=== PATIENT | male | born 1985 | race African-American/Black ===

== ENCOUNTER 2019-06-06 00:05 | Inpatient (IN) | payer BC, OTHER ==
[2019-06-06 02:45] LABS: ABSOLUTE EOSINOPHILS # (AUTO) 0.4 10^3/uL (0.0-0.6); ABSOLUTE LYMPHOCYTES (AUTO) 2.1 10^3/uL (0.5-4.7); ABSOLUTE MONOCYTES (AUTO) 0.8 10^3/uL (0.1-1.4); ABSOLUTE NEUT (AUTO) 8.7 10^3/uL (1.7-8.2); BASOPHILS % (AUTO) 0.4 % (0-2); EOSINOPHILS % (AUTO) 3.4 % (0-6); HEMATOCRIT 41.8 % (37.9-51.0); LYMPHOCYTES % (AUTO) 17.6 % (13-45); MEAN CORPUSCULAR HEMOGLOBIN 29.4 pg (27.0-33.4); MEAN CORPUSCULAR HGB CONC 33.4 g/dL (32.0-36.0); MEAN CORPUSCULAR VOLUME 88 fl (80-97); MONOCYTES % (AUTO) 6.8 % (3-13); PLATELET COUNT 222 10^3/uL (150-450); RED BLOOD COUNT 4.75 10^6/uL (4.35-5.55); RED CELL DISTRIBUTION WIDTH 13.9 % (11.5-14.0); SEGMENTED NEUTROPHILS % (AUTO) 71.8 % (42-78); TOTAL CELLS COUNTED % (AUTO) 100 %; WHITE BLOOD COUNT 12.1 10^3/uL (4.0-10.5)
[2019-06-06 03:05] LABS: ALANINE AMINOTRANSFERASE 102 U/L (21-72); ALBUMIN 3.3 g/dL (3.5-5.0); ALKALINE PHOSPHATASE 73 U/L (38-126); ANION GAP 7 (5-19); ASPARTATE AMINO TRANSFERASE 45 U/L (17-59); BILIRUBIN,DIRECT 0.3 mg/dL (0.0-0.4); BILIRUBIN,TOTAL 0.6 mg/dL (0.2-1.3); BLOOD UREA NITROGEN 16 mg/dL (7-20); CALCIUM 8.8 mg/dL (8.4-10.2); CARBON DIOXIDE 27 mmol/L (22-30); CHLORIDE 105 mmol/L (98-107); CREATINE KINASE 189 U/L (55-170); GLUCOSE 105 mg/dL (75-110); POTASSIUM 3.8 mmol/L (3.6-5.0); SODIUM 139.2 mmol/L (137-145); TOTAL PROTEIN 5.3 g/dL (6.3-8.2)
--- NOTE | 2019-06-06 03:10 | RADIOLOGY REPORT (SQ) ---
EXAM DESCRIPTION: X-ray single view chest. CLINICAL HISTORY: 34 years Male, shortness of breath COMPARISON: None. TECHNIQUE: Single portable x-ray view of the chest performed on 06/06/2019 at 2:53 AM FINDINGS: The lungs are well expanded and are clear. There is no evidence of a pneumothorax. The cardiac silhouette is prominent and may be partially accentuated by the portable technique. The mediastinal contours are normal. No acute osseous abnormality is identified. No focal soft tissue abnormalities are seen. Lines and tubes: None. IMPRESSION: No evidence of acute intrathoracic disease. Prominence of the cardiac silhouette which may be partially accentuated by the portable technique.
[2019-06-06 03:16] LABS: TROPONIN I 0.025 ng/mL
--- NOTE | 2019-06-06 04:58 | ER Document Report ---
ED General - General Chief Complaint: Shortness Of Breath Stated Complaint: REPORTS SWELLING OF LEGS AND FEET Time Seen by Provider: 06/06/19 02:25 Mode of Arrival: Ambulatory Information source: Patient Notes: Patient is a 34-year-old male presented to the emergency department chief complaint of lower extremity pain and swelling bilaterally. He also reports associated intermittent nausea and abdominal swelling. He does endorse some shortness of breath but denies any specific chest pain. He denies any vomiting fever, headaches or recent illness. Patient reports he has not seen a physician in many years. He denies having any chronic medical illnesses and does not take any medications daily. TRAVEL OUTSIDE OF THE [place] IN LAST 30 DAYS: No Past Medical History - General Information source: Law Enforcement - Social History Smoking Status: Never Smoker Chew tobacco use (# tins/day): No Frequency of alcohol use: Occasional Drug Abuse: Cocaine, Marijuana Family History: CAD, COPD, DM, Hyperlipidemia, Hypertension Patient has suicidal ideation: No Patient has homicidal ideation: No - Medical History Medical History: Negative Renal/ Medical History: Denies: Hx Peritoneal Dialysis Surgical Hx: Negative - Immunizations Immunizations up to date: No Review of Systems - Review of Systems Constitutional: No symptoms reported EENT: No symptoms reported Cardiovascular: See HPI Respiratory: See HPI Gastrointestinal: See HPI - She is Genitourinary: See HPI Male Genitourinary: See HPI Musculoskeletal: See HPI Skin: See HPI Hematologic/Lymphatic: See HPI Neurological/Psychological: See HPI Physical Exam - Vital signs Vitals: Temp Pulse Resp BP Pulse Ox 97.4 F 102 H 23 H 187/109 H 95 06/06/19 00:27 06/06/19 00:27 06/06/19 00:27 06/06/19 00:27 06/06/19 00:27 - Notes Notes: PHYSICAL EXAMINATION: GENERAL: Morbidly obese -[place] male. HEAD: Atraumatic, normocephalic. EYES: Pupils equal round and reactive to light, extraocular movements intact, sclera anicteric, conjunctiva are normal. ENT: Nares patent, oropharynx clear without exudates. Moist mucous membranes. NECK: Normal range of motion, supple without lymphadenopathy LUNGS: Breath sounds clear to auscultation bilaterally and equal. No wheezes rales or rhonchi. HEART: Tachycardic ABDOMEN: Soft, nontender, nondistended abdomen. No guarding, no rebound. No masses appreciated. Musculoskeletal: Normal range of motion, 3+ pitting edema to bilateral lower extremities. No cyanosis. NEUROLOGICAL: Cranial nerves grossly intact. Normal speech, normal gait. Normal sensory, motor exams PSYCH: Normal mood, normal affect. SKIN: Warm, Dry, normal turgor, no rashes or lesions noted. Course - Re-evaluation Re-evalutation: Laboratory 06/06/19 06/06/19 06/06/19 02:26 02:26 02:26 WBC 12.1 H RBC 4.75 Hgb 14.0 Hct 41.8 MCV 88 MCH 29.4 MCHC 33.4 RDW 13.9 Plt Count 222 Seg Neutrophils % 71.8 Lymphocytes % 17.6 Monocytes % 6.8 Eosinophils % 3.4 Basophils % 0.4 Absolute Neutrophils 8.7 H Absolute Lymphocytes 2.1 Absolute Monocytes 0.8 Absolute Eosinophils 0.4 Absolute Basophils 0.0 Sodium 139.2 Potassium 3.8 Chloride 105 Carbon Dioxide 27 Anion Gap 7 BUN 16 Creatinine 1.16 Est GFR ( Amer) > 60 Est GFR (Non-Af Amer) > 60 Glucose 105 Calcium 8.8 Total Bilirubin 0.6 Direct Bilirubin 0.3 Neonat Total Bilirubin Not Reportable Neonat Direct Bilirubin Not Reportable Neonat Indirect Bili Not Reportable AST 45 ALT 102 H Alkaline Phosphatase 73 Creatine Kinase 189 H CK-MB (CK-2) Troponin I 0.025 NT-Pro-B Natriuret Pep 705 H Total Protein 5.3 L Albumin 3.3 L 06/06/19 02:26 WBC RBC Hgb Hct MCV MCH MCHC RDW Plt Count Seg Neutrophils % Lymphocytes % Monocytes % Eosinophils % Basophils % Absolute Neutrophils Absolute Lymphocytes Absolute Monocytes Absolute Eosinophils Absolute Basophils Sodium Potassium Chloride Carbon Dioxide Anion Gap BUN Creatinine Est GFR ( Amer) Est GFR (Non-Af Amer) Glucose Calcium Total Bilirubin Direct Bilirubin Neonat Total Bilirubin Neonat Direct Bilirubin Neonat Indirect Bili AST ALT Alkaline Phosphatase Creatine Kinase CK-MB (CK-2) 0.89 Troponin I NT-Pro-B Natriuret Pep Total Protein Albumin Chest X-Ray 06/06/19 02:37 IMPRESSION: No evidence of acute intrathoracic disease. Prominence of the cardiac silhouette which may be partially accentuated by the portable technique. Spoke with dictating machine typist on-call, Dr. June who agrees to consult on this patient and feels the patient is appropriate for admission to [facility]. I will next consult the hospitalist regarding patient admission. Patient and patient's family member are updated on all test results and plan of care and are agreeable to same. 06/06/19 05:55 Patient accepted for admission by hospitalist, Dr. Lovell. - Vital Signs Vital signs: Temp Pulse Resp BP Pulse Ox 98.4 F 102 H 25 H 185/119 H 97 06/06/19 05:00 06/06/19 00:27 06/06/19 05:01 06/06/19 05:01 06/06/19 05:01 - Laboratory Result Diagrams: 06/06/19 02:26 06/06/19 02:26 Laboratory results interpreted by me: 06/06/19 06/06/19 06/06/19 02:26 02:26 02:26 WBC 12.1 H Absolute Neutrophils 8.7 H ALT 102 H Creatine Kinase 189 H NT-Pro-B Natriuret Pep 705 H Total Protein 5.3 L Albumin 3.3 L Discharge - Discharge Clinical Impression: Hypertensive urgency, 3+ pitting edema, Elevated troponin CHF (congestive heart failure) Qualifiers: Heart failure type: unspecified Heart failure chronicity: unspecified Qualified Code(s): I50.9 - Heart failure, unspecified Condition: Stable Disposition: ADMITTED INPATIENT Admitting Provider: Nas (Hospitalist) Unit Admitted: Telemetry
[2019-06-06] MEDS ORDERED: MORPHINE SULFATE 10 MG/ML INJ IV ONE (05:50)
[2019-06-06] MEDS ORDERED: FUROSEMIDE INJ/PF 40 MG/4 ML SDV IV ONE (05:50)
[2019-06-06] MEDS ORDERED: MAGNESIUM HYDROXIDE SUSP 30 ML UDCUP PO PRN (08:01)
[2019-06-06] MEDS ORDERED: PROMETHAZINE HCL INJ 25 MG/1 ML VIAL IV PRN (08:01)
[2019-06-06] MEDS ORDERED: MAG HYDROX/AL HYDROX/SIMETH SUSP 30 ML UDCUP PO PRN (08:01)
[2019-06-06] MEDS ORDERED: ACETAMINOPHEN 325 MG TABLET PO PRN (08:01)
[2019-06-06] MEDS: DOCUSATE SODIUM 100 MG CAPSULE PO SCH (09:46)
[2019-06-06] MEDS: FAMOTIDINE 20 MG TABLET PO SCH ×2 (09:46→21:11)
[2019-06-06] MEDS: ASPIRIN 81 MG TABLET, ENT COATED PO SCH (09:47)
[2019-06-06] MEDS: FUROSEMIDE INJ/PF 20 MG/2 ML SDV IV SCH ×2 (09:51→21:10)
[2019-06-06] MEDS ORDERED: LISINOPRIL 10 MG TABLET PO SCH (10:00)
[2019-06-06] MEDS ORDERED: CARVEDILOL 6.25 MG TABLET PO SCH (10:00)
[2019-06-06] MEDS: HEPARIN SOD (PORCINE) 5,000 UNIT/ML 1 ML VIAL SUBCUT SCH ×2 (13:52→21:10)
[2019-06-06] MEDS: HYDRALAZINE HCL INJ/PF 20 MG/1 ML SDV IV PRN ×2 (14:21→21:11)
--- NOTE | 2019-06-06 14:27 | PDOC H&P ---
History of Present Illness Admission Date/PCP: 06/06/19 06:11 Patient complains of: shortness of breath History of Present Illness: WILI SILVESTRE is a 34 year old male with a past medical history significant for morbid obesity, tobacco dependence, substance abuse, who presents to the emergency department today with a complaint of several weeks of progressively worsening dyspnea on exertion, orthopnea, and peripheral edema. Patient reports that he does not have a primary care provider and has not utilized [facility] in several years. Evaluation in the emergency department demonstrates blood pressures 153/103, RR 26, mild leukocytosis (WBC 12.1), proBNP of 705, indeterminately elevated troponin of 0.025, and benign chest x-ray. He is provided IV furosemide and referred to the hospitalist service for admission and management of the above-stated complaints and findings. Past Medical History Cardiac Medical History: Reports: None Pulmonary Medical History: Reports: None EENT Medical History: Reports: None Neurological Medical History: Reports: None Endocrine Medical History: Reports: Obesity Renal/ Medical History: Reports: None Malignancy Medical History: Reports: None GI Medical History: Reports: None Musculoskeltal Medical History: Reports: None Skin Medical History: Reports: None Psychiatric Medical History: Reports: Substance Abuse, Tobacco Dependency Traumatic Medical History: Reports: None Hematology: Reports: None Infectious Medical History: Reports: None Past Surgical History Past Surgical History: Reports: None Social History Information Source: Patient Lives with: Family Smoking Status: Current Every Day Smoker Cigarettes Packs Per Day: 0.2 Frequency of Alcohol Use: Occasional Hx Recreational Drug Use: Yes Drugs: Cocaine, Marijuana Hx Prescription Drug Abuse: No - Advance Directive Resuscitation Status: Full Code Family History Family History: CAD, COPD, DM, Hyperlipidemia, Hypertension, Malignancy Parental Family History Reviewed: Yes Children Family History Reviewed: No Sibling(s) Family History Reviewed.: No Medication/Allergy Home Medications: No Home Medications 06/06/19 Allergies/Adverse Reactions: No Known Allergies Allergy (Unverified 06/06/19 06:16) Review of Systems Constitutional: PRESENT: fatigue. ABSENT: chills, fever(s), headache(s), weight gain, weight loss Eyes: ABSENT: visual disturbances Ears: ABSENT: hearing changes Cardiovascular: PRESENT: dyspnea on exertion, edema, orthropnea. ABSENT: chest pain, palpitations Respiratory: ABSENT: cough, hemoptysis Gastrointestinal: ABSENT: abdominal pain, constipation, diarrhea, hematemesis, hematochezia, nausea, vomiting Genitourinary: ABSENT: dysuria, hematuria Musculoskeletal: ABSENT: joint swelling Integumentary: ABSENT: rash, wounds Neurological: ABSENT: abnormal gait, abnormal speech, confusion, dizziness, foc al weakness, syncope Psychiatric: ABSENT: anxiety, depression, homidical ideation, suicidal ideation Endocrine: ABSENT: cold intolerance, heat intolerance, polydipsia, polyuria Hematologic/Lymphatic: ABSENT: easy bleeding, easy bruising Physical Exam Vital Signs: Temp Pulse Resp BP Pulse Ox 97.6 F 94 22 H 163/115 H 96 06/06/19 12:16 06/06/19 14:00 06/06/19 12:16 06/06/19 12:16 06/06/19 12:16 Intake & Output 06/05/19 06/06/19 06/07/19 06:59 06:59 06:59 Weight 190.1 kg General appearance: PRESENT: no acute distress, cooperative, morbidly obese - Super, well-developed, well-nourished Head exam: PRESENT: atraumatic, normocephalic Eye exam: PRESENT: conjunctiva pink, EOMI, PERRLA. ABSENT: scleral icterus Ear exam: PRESENT: normal external ear exam Mouth exam: PRESENT: moist, tongue midline Neck exam: ABSENT: carotid bruit, JVD, lymphadenopathy, thyromegaly Respiratory exam: PRESENT: crackles - Bibasilar, symmetrical, unlabored. ABSENT: rales, rhonchi, wheezes Cardiovascular exam: PRESENT: RRR, +S1, +S2. ABSENT: diastolic murmur, rubs, systolic murmur Pulses: PRESENT: normal dorsalis pedis pul Vascular exam: PRESENT: normal capillary refill GI/Abdominal exam: PRESENT: normal bowel sounds, soft. ABSENT: distended, guarding, mass, organolmegaly, rebound, tenderness Rectal exam: PRESENT: deferred Extremities exam: PRESENT: full ROM, +2 edema - Pitting BLE. ABSENT: calf tenderness, clubbing, pedal edema Neurological exam: PRESENT: alert, awake, oriented to person, oriented to place, oriented to time, oriented to situation, CN II-XII grossly intact. ABSENT: motor sensory deficit Psychiatric exam: PRESENT: appropriate affect, normal mood. ABSENT: homicidal ideation, suicidal ideation Skin exam: PRESENT: dry, intact, warm. ABSENT: cyanosis, rash Results Laboratory Results: 06/06/19 02:26 06/06/19 02:26 06/06/19 06/06/19 02:26 02:26 WBC 12.1 H RBC 4.75 Hgb 14.0 Hct 41.8 MCV 88 MCH 29.4 MCHC 33.4 RDW 13.9 Plt Count 222 Seg Neutrophils % 71.8 Lymphocytes % 17.6 Monocytes % 6.8 Eosinophils % 3.4 Basophils % 0.4 Absolute Neutrophils 8.7 H Absolute Lymphocytes 2.1 Absolute Monocytes 0.8 Absolute Eosinophils 0.4 Absolute Basophils 0.0 Sodium 139.2 Potassium 3.8 Chloride 105 Carbon Dioxide 27 Anion Gap 7 BUN 16 Creatinine 1.16 Est GFR ( Amer) > 60 Est GFR (Non-Af Amer) > 60 Glucose 105 Calcium 8.8 Total Bilirubin 0.6 AST 45 ALT 102 H Alkaline Phosphatase 73 Total Protein 5.3 L Albumin 3.3 L 06/06/19 06/06/19 06/06/19 02:26 02:26 02:26 Creatine Kinase 189 H CK-MB (CK-2) 0.89 Troponin I 0.025 NT-Pro-B Natriuret Pep 705 H 06/06/19 09:30 Creatine Kinase CK-MB (CK-2) Troponin I 0.027 NT-Pro-B Natriuret Pep Impressions: Chest X-Ray 06/06/19 02:37 IMPRESSION: No evidence of acute intrathoracic disease. Prominence of the cardiac silhouette which may be partially accentuated by the portable technique. Assessment and Plan - Diagnosis (1) CHF (congestive heart failure) Qualifiers: Heart failure type: unspecified Heart failure chronicity: unspecified Qualified Code(s): I50.9 - Heart failure, unspecified Is this a current diagnosis for this admission?: Yes Plan: No previous history of CHF. Borderline cardiomegaly by chest x-ray, although radiologist comments that this may be due to positioning and technique. proBNP is only elevated to 705; again must take into consideration the patient super morbid obesity. He does have +3 pitting edema bilaterally with profound orthopnea. The patient is admitted to the medical floor and continuous cardiac telemetry. We will obtain echocardiogram. As the patient admits to somewhat regular cocaine use; will avoid beta-blockers. He is started on lisinopril, Norvasc, and spironolactone. He is placed on daily aspirin and statin therapy. We will provide IV furosemide twice daily for diuresis. Cardiac diet. Daily weights and strict I&O's. Consider cardiac consultation once echocardiogram results are available. We will risk stratify with A1c, lipid panel, and thyroid panel with a.m. lab work. Patient educator and registered dietitian are consulted. (2) Hypertensive urgency Is this a current diagnosis for this admission?: Yes Plan: Cardiac diet. Patient is started on lisinopril, Norvasc, and spironolactone. We will avoid beta-violetta secondary to admitted cocaine use. Furosemide as above. Patient educator and registered dietitian are consulted. (3) Morbid obesity with BMI of 50.0-59.9, adult Is this a current diagnosis for this admission?: Yes Plan: Dietary discretion and lifestyle modifications are recommended. TSH, A1c, lipid panel with a.m. lab work. Registered dietitian and patient educator consulted. (4) Tobacco abuse Is this a current diagnosis for this admission?: Yes Plan: Smoking cessation strongly encouraged. Nicotine replacement therapies provided. (5) Cocaine abuse Is this a current diagnosis for this admission?: Yes Plan: Patient admits to "occasional but regular" cocaine use. Strongly encouraged patient to discontinue use. We will avoid beta-violetta. Symptomatic management and supportive care. - Time Time Spent with patient: 35 or more minutes Smoking Cessation Education: 3 to 10 minutes Medications reviewed and adjusted accordingly: Yes Anticipated discharge: Home Within: within 48 hours
[2019-06-06] MEDS: SODIUM CHLORIDE NASAL SPRAY 44 ML NASL SCH ×2 (18:35→21:19)
[2019-06-06] MEDS: ATORVASTATIN CALCIUM 20 MG TABLET PO SCH (21:11)
[2019-06-06] MEDS: AMLODIPINE BESYLATE 5 MG TABLET PO SCH (21:11)
[2019-06-07] MEDS: HYDRALAZINE HCL INJ/PF 20 MG/1 ML SDV IV PRN (05:33)
[2019-06-07] MEDS: HEPARIN SOD (PORCINE) 5,000 UNIT/ML 1 ML VIAL SUBCUT SCH ×3 (05:34→22:00)
[2019-06-07 06:06] LABS: HEMATOCRIT 43.9 % (37.9-51.0); HEMOGLOBIN 14.5 g/dL (13.5-17.0); MEAN CORPUSCULAR HGB CONC 32.9 g/dL (32.0-36.0); MEAN CORPUSCULAR VOLUME 88 fl (80-97); PLATELET COUNT 220 10^3/uL (150-450); RED BLOOD COUNT 4.99 10^6/uL (4.35-5.55); WHITE BLOOD COUNT 12.2 10^3/uL (4.0-10.5)
[2019-06-07 06:30] LABS: ALANINE AMINOTRANSFERASE 78 U/L (21-72); ALBUMIN 3.5 g/dL (3.5-5.0); ALKALINE PHOSPHATASE 61 U/L (38-126); ANION GAP 8 (5-19); ASPARTATE AMINO TRANSFERASE 36 U/L (17-59); BILIRUBIN,DIRECT 0.3 mg/dL (0.0-0.4); BILIRUBIN,TOTAL 1.1 mg/dL (0.2-1.3); BLOOD UREA NITROGEN 12 mg/dL (7-20); CALCIUM 8.7 mg/dL (8.4-10.2); CARBON DIOXIDE 28 mmol/L (22-30); CHLORIDE 104 mmol/L (98-107); CHOLESTEROL 155.13 mg/dL (0-200); GLUCOSE 97 mg/dL (75-110); POTASSIUM 3.9 mmol/L (3.6-5.0); SODIUM 140.4 mmol/L (137-145); TOTAL PROTEIN 5.8 g/dL (6.3-8.2); TRIGLYCERIDES 117 mg/dL (<150)
[2019-06-07 06:41] LABS: DIRECT LDL 112 mg/dL (<100)
[2019-06-07 07:23] LABS: FREE T4 (FREE THYROXINE) 1.12 ng/dL (0.78-2.19)
[2019-06-07 07:37] LABS: THYROID STIMULATING HORMONE 1.06 uIU/mL (0.47-4.68)
[2019-06-07] MEDS: SODIUM CHLORIDE NASAL SPRAY 44 ML NASL SCH ×4 (07:47→22:00)
[2019-06-07] MEDS: FUROSEMIDE INJ/PF 20 MG/2 ML SDV IV SCH ×2 (09:31→22:00)
[2019-06-07] MEDS: NICOTINE 7 MG/24 HR PATCH.TD24 TD SCH (09:31)
[2019-06-07] MEDS: DOCUSATE SODIUM 100 MG CAPSULE PO SCH (09:33)
[2019-06-07] MEDS: ASPIRIN 81 MG TABLET, ENT COATED PO SCH (09:33)
[2019-06-07] MEDS: AMLODIPINE BESYLATE 5 MG TABLET PO SCH ×2 (09:34→21:59)
[2019-06-07] MEDS: SPIRONOLACTONE 25 MG TABLET PO SCH (09:34)
[2019-06-07] MEDS: FAMOTIDINE 20 MG TABLET PO SCH ×2 (09:34→21:59)
[2019-06-07] MEDS ORDERED: LISINOPRIL 10 MG TABLET PO SCH (10:00)
--- NOTE | 2019-06-07 13:57 | XCELERA REPORT ---
[address] [address] Transthoracic Echocardiogram Report Name: WILI SILVESTRE Age: 34 yrs Gender: Male : 1985 Patient Status: Inpatient Patient Location: [address] [place], [place] [id number] Study Date: 06/06/2019 10:54 AM Height: 74 in Weight: 419 lb BSA: 3.0 m2 Procedure: A two-dimensional transthoracic echocardiogram with color flow and Doppler was performed. Study Quality: Fair. Reason For Study: CHF History: CHF. Ordering Physician: LUCIEN LOCKE Performed By: Jud Escalante Interpretation Summary The left ventricle is moderately dilated. There is mild concentric left ventricular hypertrophy. LV EF is 30% to 35% Left ventricular systolic function is moderate to severely reduced. There is moderate to severe global hypokinesis of the left ventricle. There is no thrombus. No ASD , VSD or PFO seen. The right atrium is mild to moderately dilated. The left atrium is moderately dilated. There is no evidence of mitral valve prolapse. There is no vegetation seen on the mitral valve. There is no mitral valve stenosis. There is a mild amount of mitral regurgitation There is no aortic valvular vegetation. There is no aortic valve stenosis There is no LVOT obstruction. No aortic regurgitation is present. There is no tricuspid stenosis. There is a mild amount of tricuspid regurgitation There is mild pulmonary hypertension by echo RVSP s 40 to 45 mm of g , with RA mean of 10 to 15. There is no pulmonic valvular stenosis. There is a mild to moderate amount of pulmonic regurgitation The aortic root is normal size. The inferior vena cava appeared normal and decreased < 50% with respiration (RAP 10-15 mmHg) There is no pericardial effusion. MMode/2D Measurements & Calculations RVDd: 4.4 cm LVIDd: 5.4 cm FS: 17.5 % EPSS: 1.5 cm IVSd: 1.3 cm LVIDs: 4.5 cm EDV(Teich): 142.5 ml LVPWd: 1.2 cm ESV(Teich): 91.1 ml EF(Teich): 36.1 % Ao root diam: 2.9 cm LVLd ap4: 10.1 cm SV(MOD-sp4): 69.0 ml EDV(MOD-sp4): 184.0 ml Ao root area: 6.4 cm2 LVLs ap4: 9.1 cm LA dimension: 4.9 cm ESV(MOD-sp4): 115.0 ml EF(MOD-sp4): 37.5 % Doppler Measurements & Calculations MV E max varsha: MV P1/2t max varsha: Ao V2 max: LV V1 max P.5 cm/sec 113.0 cm/sec 99.4 cm/sec 3.2 mmHg MV A max varsha: MV P1/2t: 37.1 msec Ao max PG: LV V1 max: 42.0 cm/sec MVA(P1/2t): 5.9 cm2 4.0 mmHg 89.3 cm/sec MV E/A: 2.7 MV dec slope: 891.7 cm/sec2 MV dec time: 0.12 sec PA V2 max: PI end-d varsha: TR max varsha: MV P1/2t-pr_phl: 82.4 cm/sec 229.4 cm/sec 275.1 cm/sec 37.1 msec PA max P.7 mmHg TR max P.3 mmHg Left Ventricle The left ventricle is moderately dilated. There is mild concentric left ventricular hypertrophy. LV EF is 30% to 35%. Left ventricular systolic function is moderate to severely reduced. There is moderate to severe global hypokinesis of the left ventricle. There is no thrombus. No ASD , VSD or PFO seen. Right Ventricle The right ventricle is moderately dilated. The right ventricle is not well visualized secondary to technical limitations. The right ventricular systolic function is mildly reduced. Atria The right atrium is mild to moderately dilated. The left atrium is moderately dilated. Mitral Valve There is no evidence of mitral valve prolapse. There is no vegetation seen on the mitral valve. There is no mitral valve stenosis. There is a mild amount of mitral regurgitation. Aortic Valve There is no aortic valvular vegetation. There is no aortic valve stenosis. There is no LVOT obstruction. No aortic regurgitation is present. Tricuspid Valve There is no tricuspid stenosis. There is a mild amount of tricuspid regurgitation. There is mild pulmonary hypertension by echo. RVSP s 40 to 45 mm of g , with RA mean of 10 to 15. Pulmonic Valve There is no pulmonic valvular stenosis. There is a mild to moderate amount of pulmonic regurgitation. Great Vessels The aortic root is normal size. The inferior vena cava appeared normal and decreased < 50% with respiration (RAP 10-15 mmHg). Effusions There is no pericardial effusion. : LUCIEN LOCKE, Priscila
[2019-06-07] MEDS ORDERED: LISINOPRIL 10 MG TABLET PO ONE (17:49)
--- NOTE | 2019-06-07 17:51 | Progress Note Acknowledgement ---
Progress Note Acknowledgement Progess Note Acknowledgement: I, the undersigned member of the medical staff with appropriate privileges and with supervisory authority over Chacha Bloom, a [facility] practice allied health professional, acknowledge that I have reviewed the progress notes entered on this patient, and in my professional judgment believe that the assessment made and/or any care evidenced was appropriate
--- NOTE | 2019-06-07 18:06 | PDOC PROGRESS REPORT ---
Subjective Progress Note for:: 06/07/19 Subjective:: WILI SILVESTRE is a 34 year old male with a past medical history significant for morbid obesity, tobacco dependence, substance abuse (occ. cocaine use) who was admitted 06/07/2019 for new diagnosis of CHF with exacerbation. Patient was seen on morning rounds. He was found resting in bed comfortably on room air. Upon entering the room, he was found lying flat on his stomach. Patient tells me that this is the first he has been able to lie flat for several months. He is comfortable lying prone but does become short of breath when lying supine. He also reports that he utilize CPAP machine overnight for approximately 3 hours and that this was the first time he was able to get uninterrupted sleep in several months. He does continue to have bilateral lower extremity pitting edema, though he notes this is also somewhat improved today. He denies fever, chills, chest pain, palpitations, cough, abdominal pain, nausea vomiting and diarrhea. He has no new questions or concerns. No concerns per nursing. Reason For Visit: ACUTE CHF Physical Exam Vital Signs: Temp Pulse Resp BP Pulse Ox 97.7 F 96 20 154/114 H 95 06/07/19 16:00 06/07/19 16:00 06/07/19 16:00 06/07/19 16:00 06/07/19 16:00 Intake & Output 06/06/19 06/07/19 06/08/19 06:59 06:59 06:59 Intake Total 2100 1114 Output Total 4325 2050 Balance -2225 -936 Weight 190.1 kg 186.2 kg General appearance: PRESENT: no acute distress, cooperative, morbidly obese - Super, well-developed, well-nourished Head exam: PRESENT: atraumatic, normocephalic Eye exam: PRESENT: conjunctiva pink, EOMI, PERRLA. ABSENT: scleral icterus Mouth exam: PRESENT: moist, tongue midline Neck exam: ABSENT: carotid bruit, JVD, lymphadenopathy, thyromegaly Respiratory exam: PRESENT: crackles - Bibasilar, symmetrical, unlabored. ABSENT: rales, rhonchi, wheezes Cardiovascular exam: PRESENT: RRR, +S1, +S2. ABSENT: diastolic murmur, rubs, systolic murmur Pulses: PRESENT: normal dorsalis pedis pul Vascular exam: PRESENT: normal capillary refill GI/Abdominal exam: PRESENT: normal bowel sounds, soft. ABSENT: distended, guarding, mass, organolmegaly, rebound, tenderness Rectal exam: PRESENT: deferred Extremities exam: PRESENT: full ROM, +2 edema - Pitting BLE. ABSENT: calf tenderness, clubbing, pedal edema Neurological exam: PRESENT: alert, awake, oriented to person, oriented to place, oriented to time, oriented to situation, CN II-XII grossly intact. ABSENT: motor sensory deficit Psychiatric exam: PRESENT: appropriate affect, normal mood. ABSENT: homicidal ideation, suicidal ideation Skin exam: PRESENT: dry, intact, warm. ABSENT: cyanosis, rash Results Laboratory Results: 06/07/19 05:09 06/07/19 05:09 06/07/19 06/07/19 06/07/19 05:09 05:09 05:09 WBC 12.2 H RBC 4.99 Hgb 14.5 Hct 43.9 MCV 88 MCH 29.0 MCHC 32.9 RDW 14.0 Plt Count 220 Sodium 140.4 Potassium 3.9 Chloride 104 Carbon Dioxide 28 Anion Gap 8 BUN 12 Creatinine 1.07 Est GFR ( Amer) > 60 Est GFR (Non-Af Amer) > 60 Glucose 97 Calcium 8.7 Total Bilirubin 1.1 AST 36 ALT 78 H Alkaline Phosphatase 61 Total Protein 5.8 L Albumin 3.5 Triglycerides 117 Cholesterol 155.13 LDL Cholesterol Direct 112 H VLDL Cholesterol 23.0 HDL Cholesterol 31 L TSH 1.06 Free T4 1.12 06/06/19 06/06/19 06/06/19 02:26 02:26 02:26 Creatine Kinase 189 H CK-MB (CK-2) 0.89 Troponin I 0.025 NT-Pro-B Natriuret Pep 705 H 06/06/19 06/06/19 09:30 14:41 Creatine Kinase CK-MB (CK-2) Troponin I 0.027 0.029 NT-Pro-B Natriuret Pep Impressions: Chest X-Ray 06/06/19 02:37 IMPRESSION: No evidence of acute intrathoracic disease. Prominence of the cardiac silhouette which may be partially accentuated by the portable technique. Assessment and Plan - Diagnosis (1) CHF (congestive heart failure) Qualifiers: Heart failure type: unspecified Heart failure chronicity: unspecified Qualified Code(s): I50.9 - Heart failure, unspecified Is this a current diagnosis for this admission?: Yes Plan: No previous history of CHF. Borderline cardiomegaly by chest x-ray, although radiologist comments that this may be due to positioning and technique. proBNP is only elevated to 705; again must take into consideration the patient super morbid obesity. Troponins are negative x3 He does have +3 pitting edema bilaterally with orthopnea. Echocardiogram reveals LVEF 30-35%, severe global hypokinesis of the left ventricle, right atrium moderately dilatated, left atrium moderately dilatated, and mild pulmonary hypertension. A1c, lipid panel, and TSH panel are acceptable. The patient is admitted to the medical floor and continuous cardiac telemetry. As the patient admits to somewhat regular cocaine use; will avoid beta-blockers. He is started on lisinopril, Norvasc, and spironolactone. He is placed on daily aspirin and statin therapy. We will provide IV furosemide twice daily for diuresis. Cardiac diet. Daily weights and strict I&O's. We will consult the [employer] optometry assistant for evaluation of appropriateness of cardiac cath. Patient educator and registered dietitian are consulted. (2) Hypertensive urgency Is this a current diagnosis for this admission?: Yes Plan: Cardiac diet. Patient is started on lisinopril, Norvasc, and spironolactone. Have increased lisinopril dose. Consider renal u/s and/or hydralazine if remains elevated tomorrow. We will avoid beta-violetta secondary to admitted cocaine use. Furosemide as above. Patient educator and registered dietitian are consulted. (3) Morbid obesity with BMI of 50.0-59.9, adult Is this a current diagnosis for this admission?: Yes Plan: A1c, lipid panel, TSH panel acceptable. Dietary discretion and lifestyle modifications are recommended. Registered dietitian and patient educator consulted. (4) Tobacco abuse Is this a current diagnosis for this admission?: Yes Plan: Smoking cessation strongly encouraged. Nicotine replacement therapies provided. (5) Cocaine abuse Is this a current diagnosis for this admission?: Yes Plan: Patient admits to "occasional but regular" cocaine use. Strongly encouraged patient to discontinue use. We will avoid beta-violetta. Symptomatic management and supportive care. - Time Time Spent with patient: 25-34 minutes Medications reviewed and adjusted accordingly: Yes Anticipated discharge: Home Within: within 48 hours - Inpatient Certification Based on my medical assessment, after consideration of the patient's comorbidities, presenting symptoms, or acuity I expect that the services needed warrant INPATIENT care.: Yes I certify that my determination is in accordance with my understanding of Medicare's requirements for reasonable and necessary INPATIENT services [42 CFR 412.3e].: Yes Medical Necessity: Need For Continuous Telemetry Monitoring, Risk of Complication if Not Cared For in Hospital, Risk of Diagnosis Which Will Require Inpatient Eval/Care/Monitoring
--- NOTE | 2019-06-07 18:25 | EKG REPORT ---
SEVERITY:- ABNORMAL ECG - SINUS TACHYCARDIA PROBABLE LEFT ATRIAL ABNORMALITY NONSPECIFIC T ABNORMALITIES, LATERAL LEADS PROLONGED QT INTERVAL : Confirmed by: Boogie Murphy MD 07-Jun-2019 18:25:02
[2019-06-07] MEDS: ATORVASTATIN CALCIUM 20 MG TABLET PO SCH (21:59)
[2019-06-08] MEDS: HYDRALAZINE HCL INJ/PF 20 MG/1 ML SDV IV PRN ×2 (00:20→11:34)
[2019-06-08] MEDS: HEPARIN SOD (PORCINE) 5,000 UNIT/ML 1 ML VIAL SUBCUT SCH ×3 (05:19→21:48)
[2019-06-08 06:13] LABS: HEMATOCRIT 43.9 % (37.9-51.0); HEMOGLOBIN 14.3 g/dL (13.5-17.0); MEAN CORPUSCULAR HEMOGLOBIN 28.5 pg (27.0-33.4); MEAN CORPUSCULAR HGB CONC 32.7 g/dL (32.0-36.0); MEAN CORPUSCULAR VOLUME 87 fl (80-97); PLATELET COUNT 228 10^3/uL (150-450); RED BLOOD COUNT 5.03 10^6/uL (4.35-5.55); RED CELL DISTRIBUTION WIDTH 14.1 % (11.5-14.0); WHITE BLOOD COUNT 11.3 10^3/uL (4.0-10.5)
[2019-06-08 06:36] LABS: ANION GAP 7 (5-19); BLOOD UREA NITROGEN 10 mg/dL (7-20); CALCIUM 8.7 mg/dL (8.4-10.2); CARBON DIOXIDE 28 mmol/L (22-30); CHLORIDE 105 mmol/L (98-107); GLUCOSE 93 mg/dL (75-110); POTASSIUM 3.6 mmol/L (3.6-5.0); SODIUM 140.4 mmol/L (137-145)
[2019-06-08] MEDS: FUROSEMIDE INJ/PF 20 MG/2 ML SDV IV SCH ×2 (09:10→21:48)
[2019-06-08] MEDS: NICOTINE 7 MG/24 HR PATCH.TD24 TD SCH (09:10)
[2019-06-08] MEDS: ASPIRIN 81 MG TABLET, ENT COATED PO SCH (09:16)
[2019-06-08] MEDS: FAMOTIDINE 20 MG TABLET PO SCH ×2 (09:16→21:47)
[2019-06-08] MEDS: LISINOPRIL 10 MG TABLET PO SCH (09:17)
[2019-06-08] MEDS: AMLODIPINE BESYLATE 5 MG TABLET PO SCH ×2 (09:18→21:47)
[2019-06-08] MEDS: SODIUM CHLORIDE NASAL SPRAY 44 ML NASL SCH ×4 (09:21→21:48)
[2019-06-08] MEDS: DOCUSATE SODIUM 100 MG CAPSULE PO SCH (09:24)
[2019-06-08] MEDS: SPIRONOLACTONE 25 MG TABLET PO SCH (09:26)
[2019-06-08 10:31] LABS: INTERNATIONAL RATION (INR) 1.06; PROTHROMBIN TIME 13.8 SEC (11.4-15.4)
[2019-06-08 10:32] LABS: PARTIAL THROMBOPLASTIN TIME 27.2 SEC (23.5-35.8)
[2019-06-08] MEDS ORDERED: LIDOCAINE 1% INJ-PF (10 MG/ML) 30 ML SDV ONE (11:20)
[2019-06-08] MEDS ORDERED: HEPARIN SODIUM,PORCINE/NS/PF 0 UNIT/0 ML RTUINJ IV ONE (11:20)
[2019-06-08] MEDS ORDERED: VERAPAMIL HCL 5 MG, LIDOCAINE HCL/PF 4 ML, NORMAL SALINE 12 ML, NITROGLYCERIN/D5W 0.4 M... IV PRN ×5 (12:00)
--- NOTE | 2019-06-08 13:59 | PDOC PROGRESS REPORT ---
Subjective Progress Note for:: 06/08/19 Subjective:: WILI SILVESTRE is a 34 year old male with a past medical history significant for morbid obesity, tobacco dependence, substance abuse (occ. cocaine use) who was admitted 06/07/2019 for new diagnosis of CHF with exacerbation. Patient was seen on morning rounds. He was found resting in bed comfortably on room air. He reports he is comfortable lying prone and on his side, but does become short of breath when lying supine. He does state that this is significantly improved. He does continue to have bilateral lower extremity pitting edema, though he notes this is also improved today. He denies fever, chills, chest pain, palpitations, cough, abdominal pain, nausea vomiting and diarrhea. He has no new questions or concerns. No concerns per nursing. Reason For Visit: ACUTE CHF Physical Exam Vital Signs: Temp Pulse Resp BP Pulse Ox 98.9 F 93 17 144/95 H 95 06/08/19 08:00 06/08/19 12:22 06/08/19 08:00 06/08/19 12:22 06/08/19 08:00 Intake & Output 06/07/19 06/08/19 06/09/19 06:59 06:59 06:59 Intake Total 2100 2201 Output Total 4325 6475 Balance -2225 -4274 Weight 171 kg General appearance: PRESENT: no acute distress, cooperative, morbidly obese, well-developed, well-nourished Head exam: PRESENT: atraumatic, normocephalic Eye exam: PRESENT: conjunctiva pink, EOMI, PERRLA. ABSENT: scleral icterus Ear exam: PRESENT: normal external ear exam Mouth exam: PRESENT: moist, tongue midline Neck exam: ABSENT: carotid bruit, JVD, lymphadenopathy, thyromegaly Respiratory exam: PRESENT: clear to auscultation chyna - throughout, symmetrical, unlabored. ABSENT: rales, rhonchi, wheezes Cardiovascular exam: PRESENT: RRR, +S1, +S2. ABSENT: diastolic murmur, rubs, systolic murmur Pulses: PRESENT: normal dorsalis pedis pul Vascular exam: PRESENT: normal capillary refill GI/Abdominal exam: PRESENT: normal bowel sounds, soft. ABSENT: distended, guard ing, mass, organolmegaly, rebound, tenderness Rectal exam: PRESENT: deferred Extremities exam: PRESENT: full ROM, +2 edema - Pitting BLE. ABSENT: calf tenderness, clubbing, pedal edema Musculoskeletal exam: PRESENT: ambulatory Neurological exam: PRESENT: alert, awake, oriented to person, oriented to place, oriented to time, oriented to situation, CN II-XII grossly intact. ABSENT: motor sensory deficit Psychiatric exam: PRESENT: appropriate affect, normal mood. ABSENT: homicidal ideation, suicidal ideation Skin exam: PRESENT: dry, intact, warm. ABSENT: cyanosis, rash Results Laboratory Results: 06/08/19 05:30 06/08/19 05:30 06/08/19 06/08/19 05:30 05:30 WBC 11.3 H RBC 5.03 Hgb 14.3 Hct 43.9 MCV 87 MCH 28.5 MCHC 32.7 RDW 14.1 H Plt Count 228 Sodium 140.4 Potassium 3.6 Chloride 105 Carbon Dioxide 28 Anion Gap 7 BUN 10 Creatinine 1.01 Est GFR ( Amer) > 60 Est GFR (Non-Af Amer) > 60 Glucose 93 Calcium 8.7 06/06/19 06/06/19 06/06/19 02:26 02:26 02:26 Creatine Kinase 189 H CK-MB (CK-2) 0.89 Troponin I 0.025 NT-Pro-B Natriuret Pep 705 H 06/06/19 06/06/19 09:30 14:41 Creatine Kinase CK-MB (CK-2) Troponin I 0.027 0.029 NT-Pro-B Natriuret Pep Impressions: Chest X-Ray 06/06/19 02:37 IMPRESSION: No evidence of acute intrathoracic disease. Prominence of the cardiac silhouette which may be partially accentuated by the portable technique. Assessment and Plan - Diagnosis (1) CHF (congestive heart failure) Qualifiers: Heart failure type: unspecified Heart failure chronicity: unspecified Qualified Code(s): I50.9 - Heart failure, unspecified Is this a current diagnosis for this admission?: Yes Plan: No previous history of CHF. Borderline cardiomegaly by chest x-ray, although radiologist comments that this may be due to positioning and technique. proBNP is only elevated to 705; again must take into consideration the patient super morbid obesity. Troponins are negative x3 He does have +3 pitting edema bilaterally with orthopnea. Echocardiogram reveals LVEF 30-35%, severe global hypokinesis of the left ventricle, right atrium moderately dilatated, left atrium moderately dilatated, and mild pulmonary hypertension. A1c, lipid panel, and TSH panel are acceptable. The patient is admitted to the medical floor and continuous cardiac telemetry. As the patient admits to somewhat regular cocaine use; will avoid beta-blockers. He is started on lisinopril, Norvasc, and spironolactone. He is placed on daily aspirin and statin therapy. We will provide IV furosemide twice daily for diuresis. Cardiac diet. Daily weights and strict I&O's. Patient educator and registered dietitian are consulted. Discussed with Dr. Du today. As the patient is young with global hypokinesis (not a focal injury more suggestive of an ACS event) and responding well to medical management, the patient is considered low risk for discharge to home with close cardiology follow-up. Dr. Du has arranged for the patient to have a follow-up appointment with [facility] cardiology on June 23 at 8 AM for further outpatient work-up and management. (2) Hypertensive urgency Is this a current diagnosis for this admission?: Yes Plan: Cardiac diet. Continue lisinopril, Norvasc, and spironolactone. Have started low dose hydralazine q8 hrs We will avoid beta-violetta secondary to admitted cocaine use. Furosemide as above. Consider renal u/s Patient educator and registered dietitian are consulted. (3) Morbid obesity with BMI of 50.0-59.9, adult Is this a current diagnosis for this admission?: Yes Plan: A1c, lipid panel, TSH panel acceptable. Dietary discretion and lifestyle modifications are recommended. Registered dietitian and patient educator consulted. (4) Tobacco abuse Is this a current diagnosis for this admission?: Yes Plan: Smoking cessation strongly encouraged. Nicotine replacement therapies provided. (5) Cocaine abuse Is this a current diagnosis for this admission?: Yes Plan: Patient admits to "occasional but regular" cocaine use. Strongly encouraged patient to discontinue use. We will avoid beta-violetta. Symptomatic management and supportive care. - Time Time Spent with patient: 35 or more minutes Medications reviewed and adjusted accordingly: Yes Anticipated discharge: Home Within: within 48 hours
[2019-06-08] MEDS: HYDRALAZINE HCL 10 MG TABLET PO SCH ×2 (14:01→21:47)
[2019-06-08] MEDS: ATORVASTATIN CALCIUM 20 MG TABLET PO SCH (21:47)
[2019-06-09] MEDS: HYDRALAZINE HCL INJ/PF 20 MG/1 ML SDV IV PRN (05:32)
[2019-06-09] MEDS: HYDRALAZINE HCL 10 MG TABLET PO SCH (05:32)
[2019-06-09] MEDS: HEPARIN SOD (PORCINE) 5,000 UNIT/ML 1 ML VIAL SUBCUT SCH ×2 (05:35→13:31)
[2019-06-09 05:55] LABS: HEMATOCRIT 42.8 % (37.9-51.0); HEMOGLOBIN 14.3 g/dL (13.5-17.0); MEAN CORPUSCULAR HEMOGLOBIN 29.3 pg (27.0-33.4); MEAN CORPUSCULAR HGB CONC 33.3 g/dL (32.0-36.0); MEAN CORPUSCULAR VOLUME 88 fl (80-97); PLATELET COUNT 208 10^3/uL (150-450); RED BLOOD COUNT 4.87 10^6/uL (4.35-5.55); WHITE BLOOD COUNT 9.8 10^3/uL (4.0-10.5)
[2019-06-09 06:19] LABS: ANION GAP 8 (5-19); BLOOD UREA NITROGEN 12 mg/dL (7-20); CALCIUM 8.6 mg/dL (8.4-10.2); CARBON DIOXIDE 29 mmol/L (22-30); CHLORIDE 104 mmol/L (98-107); GLUCOSE 97 mg/dL (75-110); POTASSIUM 3.8 mmol/L (3.6-5.0); SODIUM 140.8 mmol/L (137-145)
[2019-06-09] MEDS: SODIUM CHLORIDE NASAL SPRAY 44 ML NASL SCH ×4 (07:40→22:58)
[2019-06-09] MEDS: NICOTINE 7 MG/24 HR PATCH.TD24 TD SCH (10:22)
[2019-06-09] MEDS: ASPIRIN 81 MG TABLET, ENT COATED PO SCH (10:22)
[2019-06-09] MEDS: LISINOPRIL 10 MG TABLET PO SCH (10:25)
[2019-06-09] MEDS: AMLODIPINE BESYLATE 5 MG TABLET PO SCH ×2 (10:26→22:57)
[2019-06-09] MEDS: SPIRONOLACTONE 25 MG TABLET PO SCH (10:26)
[2019-06-09] MEDS: FUROSEMIDE INJ/PF 20 MG/2 ML SDV IV SCH (10:26)
[2019-06-09] MEDS: FAMOTIDINE 20 MG TABLET PO SCH ×2 (10:27→22:57)
[2019-06-09] MEDS: DOCUSATE SODIUM 100 MG CAPSULE PO SCH (10:27)
[2019-06-09] MEDS: HYDRALAZINE HCL 25 MG TABLET PO SCH ×2 (13:32→22:57)
--- NOTE | 2019-06-09 18:32 | PDOC PROGRESS REPORT ---
Subjective Progress Note for:: 06/09/19 Subjective:: WILI SILVESTRE is a 34 year old male with a past medical history significant for morbid obesity, tobacco dependence, substance abuse (occ. cocaine use) who was admitted 06/07/2019 for new diagnosis of CHF with exacerbation. Patient was seen on morning rounds. He was found resting in bed comfortably on room air. He reports he is comfortable lying prone and on his side, but does become short of breath when lying supine. He does continue to have bilateral lower extremity pitting edema, also improved today. He denies fever, chills, chest pain, palpitations, cough, abdominal pain, nausea vomiting and diarrhea. He has no new questions or concerns. No concerns per nursing. Reason For Visit: ACUTE CHF Physical Exam Vital Signs: Temp Pulse Resp BP Pulse Ox 98.1 F 91 16 146/92 H 97 06/09/19 12:17 06/09/19 14:00 06/09/19 12:17 06/09/19 12:17 06/09/19 12:17 Intake & Output 06/08/19 06/09/19 06/10/19 06:59 06:59 06:59 Intake Total 2201 1237 1240 Output Total 6475 3150 2610 Balance -4834 -2773 -7000 Weight 171 kg 173.2 kg General appearance: PRESENT: no acute distress, cooperative, morbidly obese, we ll-developed, well-nourished Head exam: PRESENT: atraumatic, normocephalic Eye exam: PRESENT: conjunctiva pink, EOMI, PERRLA. ABSENT: scleral icterus Ear exam: PRESENT: normal external ear exam Mouth exam: PRESENT: moist, tongue midline Neck exam: ABSENT: carotid bruit, JVD, lymphadenopathy, thyromegaly Respiratory exam: PRESENT: clear to auscultation chyna, symmetrical, unlabored. ABSENT: rales, rhonchi, wheezes Cardiovascular exam: PRESENT: RRR. ABSENT: diastolic murmur, rubs, systolic murmur Pulses: PRESENT: normal dorsalis pedis pul Vascular exam: PRESENT: normal capillary refill GI/Abdominal exam: PRESENT: normal bowel sounds, soft. ABSENT: distended, guarding, mass, organolmegaly, rebound, tenderness Rectal exam: PRESENT: deferred Extremities exam: PRESENT: full ROM, +2 edema - pitting BLE. ABSENT: calf tenderness, clubbing, pedal edema Musculoskeletal exam: PRESENT: ambulatory Neurological exam: PRESENT: alert, awake, oriented to person, oriented to place, oriented to time, oriented to situation, CN II-XII grossly intact. ABSENT: motor sensory deficit Psychiatric exam: PRESENT: appropriate affect, normal mood. ABSENT: homicidal ideation, suicidal ideation Skin exam: PRESENT: dry, intact, warm. ABSENT: cyanosis, rash Results Laboratory Results: 06/09/19 04:33 06/09/19 04:33 06/09/19 06/09/19 04:33 04:33 WBC 9.8 RBC 4.87 Hgb 14.3 Hct 42.8 MCV 88 MCH 29.3 MCHC 33.3 RDW 14.0 Plt Count 208 Sodium 140.8 Potassium 3.8 Chloride 104 Carbon Dioxide 29 Anion Gap 8 BUN 12 Creatinine 1.10 Est GFR ( Amer) > 60 Est GFR (Non-Af Amer) > 60 Glucose 97 Calcium 8.6 06/06/19 06/06/19 06/06/19 02:26 02:26 02:26 Creatine Kinase 189 H CK-MB (CK-2) 0.89 Troponin I 0.025 NT-Pro-B Natriuret Pep 705 H 06/06/19 06/06/19 09:30 14:41 Creatine Kinase CK-MB (CK-2) Troponin I 0.027 0.029 NT-Pro-B Natriuret Pep Impressions: Chest X-Ray 06/06/19 02:37 IMPRESSION: No evidence of acute intrathoracic disease. Prominence of the cardiac silhouette which may be partially accentuated by the portable technique. Assessment and Plan - Diagnosis (1) CHF (congestive heart failure) Qualifiers: Heart failure type: unspecified Heart failure chronicity: unspecified Qualified Code(s): I50.9 - Heart failure, unspecified Is this a current diagnosis for this admission?: Yes Plan: No previous history of CHF. Borderline cardiomegaly by chest x-ray, although radiologist comments that this may be due to positioning and technique. proBNP is only elevated to 705; again must take into consideration the patient super morbid obesity. Troponins are negative x3 He does have +3 pitting edema bilaterally with orthopnea. Echocardiogram reveals LVEF 30-35%, severe global hypokinesis of the left ventricle, right atrium moderately dilatated, left atrium moderately dilatated, and mild pulmonary hypertension. A1c, lipid panel, and TSH panel are acceptable. The patient is admitted to the medical floor and continuous cardiac telemetry. As the patient admits to somewhat regular cocaine use; will avoid beta-blockers. He is started on lisinopril, Norvasc, and spironolactone. He is placed on daily aspirin and statin therapy. Will transition to p.o. furosemide. Cardiac diet. Daily weights and strict I&O's. Patient educator and registered dietitian are consulted. Discussed with Dr. Du yesterday as the patient is young with global hypokinesis (not a focal injury more suggestive of an ACS event) and responding well to medical management, the patient is considered low risk for discharge to home with close cardiology follow-up. Dr. Du has arranged for the patient to have a follow-up appointment with [facility] cardiology on June 23 at 8 AM for further outpatient work-up and management. (2) Hypertensive urgency Is this a current diagnosis for this admission?: Yes Plan: Cardiac diet. Continue lisinopril, Norvasc, and spironolactone. Have started low dose hydralazine q8 hrs We will avoid beta-violetta secondary to admitted cocaine use. Furosemide as above. Consider renal u/s Patient educator and registered dietitian are consulted. (3) Morbid obesity with BMI of 50.0-59.9, adult Is this a current diagnosis for this admission?: Yes Plan: A1c, lipid panel, TSH panel acceptable. Dietary discretion and lifestyle modifications are recommended. Registered dietitian and patient educator consulted. (4) Tobacco abuse Is this a current diagnosis for this admission?: Yes Plan: Smoking cessation strongly encouraged. Nicotine replacement therapies provided. (5) Cocaine abuse Is this a current diagnosis for this admission?: Yes Plan: Patient admits to "occasional but regular" cocaine use. Strongly encouraged patient to discontinue use. We will avoid beta-violetta. Symptomatic management and supportive care. - Time Time Spent with patient: 25-34 minutes Medications reviewed and adjusted accordingly: Yes Anticipated discharge: Home Within: within 24 hours
[2019-06-09] MEDS: ATORVASTATIN CALCIUM 20 MG TABLET PO SCH (22:57)
[2019-06-10] MEDS: HEPARIN SOD (PORCINE) 5,000 UNIT/ML 1 ML VIAL SUBCUT SCH ×2 (05:07→05:55)
[2019-06-10] MEDS: HYDRALAZINE HCL 25 MG TABLET PO SCH ×2 (05:54→13:32)
[2019-06-10] MEDS: SODIUM CHLORIDE NASAL SPRAY 44 ML NASL SCH ×2 (07:48→11:08)
[2019-06-10] MEDS: AMLODIPINE BESYLATE 5 MG TABLET PO SCH (09:03)
[2019-06-10] MEDS: NICOTINE 7 MG/24 HR PATCH.TD24 TD SCH (09:03)
[2019-06-10] MEDS: LISINOPRIL 10 MG TABLET PO SCH (09:03)
[2019-06-10] MEDS: DOCUSATE SODIUM 100 MG CAPSULE PO SCH (09:03)
[2019-06-10] MEDS: SPIRONOLACTONE 25 MG TABLET PO SCH (09:04)
[2019-06-10] MEDS: ASPIRIN 81 MG TABLET, ENT COATED PO SCH (09:04)
[2019-06-10] MEDS: FAMOTIDINE 20 MG TABLET PO SCH (09:04)
[2019-06-10] MEDS ORDERED: FUROSEMIDE 40 MG TABLET PO SCH (10:00)
[2019-06-10] MEDS: HYDRALAZINE HCL INJ/PF 20 MG/1 ML SDV IV PRN (11:41)
[2019-06-10 12:06] VITALS: BP 162/108
--- NOTE | 2019-06-13 17:13 | PDOC DISCHARGE SUMMARY ---
General - Admit/Disc Date/PCP Admission Date/Primary Care Provider: 06/07/19 15:51 Discharge Date: 06/10/19 - Discharge Diagnosis (1) CHF (congestive heart failure) Is this a current diagnosis for this admission?: Yes Summary: No previous history of CHF. Borderline cardiomegaly by chest x-ray, although radiologist comments that this may be due to positioning and technique. proBNP is only elevated to 705; again must take into consideration the patient super morbid obesity. Troponins are negative x3 He does have +3 pitting edema bilaterally with orthopnea. Echocardiogram reveals LVEF 30-35%, severe global hypokinesis of the left ventricle, right atrium moderately dilatated, left atrium moderately dilatated, and mild pulmonary hypertension. A1c, lipid panel, and TSH panel are acceptable. The patient was admitted to the medical floor and continuous cardiac telemetry. As the patient admits to somewhat regular cocaine use; will avoid beta-blockers. He is started on lisinopril, Norvasc, and spironolactone. He is placed on daily aspirin and statin therapy. He initially was treated with IV furosemide; will transition to p.o. furosemide to continue following discharge. He was placed on a Cardiac diet and monitored with daily weights and strict I&O's. Patient educator and registered dietitian were consulted. Discussed with Dr. Du; as the patient is young with global hypokinesis (not a focal injury more suggestive of an ACS event) and responding well to medical man agement, the patient is considered low risk for discharge to home with close cardiology follow-up. Dr. Du has arranged for the patient to have a follow- up appointment with [facility] on June 23 at 8 AM for further outpatient work-up and management. (2) Hypertensive urgency Is this a current diagnosis for this admission?: Yes Summary: Improved; 146/91 today Dietary and lifestyle modifications are encouraged; continue Cardiac diet. Continue lisinopril, Norvasc, hydralazine TID, furosemide and spironolactone. We will avoid beta-violetta secondary to admitted cocaine use. Patient educator and registered dietitian are consulted. Follow up cardiology appointment scheduled 06/23/19 (3) Morbid obesity with BMI of 50.0-59.9, adult Is this a current diagnosis for this admission?: Yes Summary: A1c, lipid panel, TSH panel acceptable. Dietary discretion and lifestyle modifications are recommended. Registered dietitian and patient educator consulted. (4) Tobacco abuse Is this a current diagnosis for this admission?: Yes Summary: Smoking cessation strongly encouraged. Nicotine replacement therapies provided. (5) Cocaine abuse Is this a current diagnosis for this admission?: Yes Summary: Patient admits to "occasional but regular" cocaine use. Strongly encouraged patient to discontinue use. Should avoid beta-blockers. Symptomatic management and supportive care. - Additional Information Resuscitation Status: Full Code Discharge Diet: Cardiac Discharge Activity: Activity As Tolerated, Balance Activity w/Rest, Weigh Daily Prescriptions: Amlodipine Besylate [Norvasc 5 mg Tablet] 5 mg PO Q12 #60 tablet Aspirin [Ecotrin 81 mg EC Tablet] 81 mg PO DAILY #90 tabec Atorvastatin Calcium [Lipitor 20 mg Tablet] 20 mg PO QHS #30 tablet Furosemide [Lasix 40 mg Tablet] 40 mg PO QAM #30 tablet Hydralazine HCl [Apresoline 25 mg Tablet] 25 mg PO Q8 #90 tablet Lisinopril [Prinivil 10 mg Tablet] 40 mg PO DAILY #30 tablet Nicotine [Nicoderm 7 mg/24 Hr Transdermal Patch] 1 each TD DAILY #30 patch.td24 Spironolactone [Aldactone 25 mg Tablet] 25 mg PO DAILY #30 tablet Home Medications: Acetaminophen [Tylenol 325 mg Tablet] 650 mg PO Q4HP PRN tablet 06/10/19 Amlodipine Besylate [Norvasc 5 mg Tablet] 5 mg PO Q12 #60 tablet 06/10/19 Aspirin [Ecotrin 81 mg EC Tablet] 81 mg PO DAILY #90 tabec 06/10/19 Atorvastatin Calcium [Lipitor 20 mg Tablet] 20 mg PO QHS #30 tablet 06/10/19 Docusate Sodium [Colace 100 mg Capsule] 100 mg PO DAILY capsule 06/10/19 Furosemide [Lasix 40 mg Tablet] 40 mg PO QAM #30 tablet 06/10/19 Hydralazine HCl [Apresoline 25 mg Tablet] 25 mg PO Q8 #90 tablet 06/10/19 Lisinopril [Prinivil 10 mg Tablet] 40 mg PO DAILY #30 tablet 06/10/19 Nicotine [Nicoderm 7 mg/24 Hr Transdermal Patch] 1 each TD DAILY #30 patch.td24 06/10/19 Spironolactone [Aldactone 25 mg Tablet] 25 mg PO DAILY #30 tablet 06/10/19 History of Present Illness History of Present Illness: WILI SILVESTRE is a 34 year old male with a past medical history significant for morbid obesity, tobacco dependence, substance abuse, who presents to the emergency department today with a complaint of several weeks of progressively worsening dyspnea on exertion, orthopnea, and peripheral edema. Patient reports that he does not have a primary care provider and has not utilized Healthcare [facility] in several years. Evaluation in the emergency department demonstrates blood pressures 153/103, RR 26, mild leukocytosis (WBC 12.1), proBNP of 705, indeterminately elevated troponin of 0.025, and benign chest x-ray. He is provided IV furosemide and referred to the hospitalist service for admission and management of the above-stated complaints and findings. Physical Exam Vital Signs: Temp Pulse Resp BP Pulse Ox 98.7 F 96 15 162/108 H 93 06/10/19 12:12 06/10/19 12:12 06/10/19 12:12 06/10/19 12:12 06/10/19 12:12 General appearance: PRESENT: no acute distress, cooperative, morbidly obese, well-developed, well-nourished Head exam: PRESENT: atraumatic, normocephalic Eye exam: PRESENT: conjunctiva pink, EOMI, PERRLA. ABSENT: scleral icterus Ear exam: PRESENT: normal external ear exam Mouth exam: PRESENT: moist, tongue midline Neck exam: ABSENT: carotid bruit, JVD, lymphadenopathy, thyromegaly Respiratory exam: PRESENT: clear to auscultation chyna, symmetrical, unlabored. ABSENT: rales, rhonchi, wheezes Cardiovascular exam: PRESENT: RRR, +S1, +S2. ABSENT: diastolic murmur, rubs, systolic murmur Pulses: PRESENT: normal dorsalis pedis pul Vascular exam: PRESENT: normal capillary refill GI/Abdominal exam: PRESENT: normal bowel sounds, soft. ABSENT: distended, guarding, mass, organolmegaly, rebound, tenderness Rectal exam: PRESENT: deferred Extremities exam: PRESENT: full ROM, +2 edema - BLE; improved. ABSENT: calf tenderness, clubbing, pedal edema Musculoskeletal exam: PRESENT: ambulatory Neurological exam: PRESENT: alert, awake, oriented to person, oriented to place, oriented to time, oriented to situation, CN II-XII grossly intact. ABSENT: motor sensory deficit Psychiatric exam: PRESENT: appropriate affect, normal mood. ABSENT: homicidal ideation, suicidal ideation Skin exam: PRESENT: dry, intact, warm. ABSENT: cyanosis, rash Results Laboratory Results: 06/09/19 04:33 06/09/19 04:33 06/06/19 06/06/19 06/06/19 02:26 02:26 02:26 Creatine Kinase 189 H CK-MB (CK-2) 0.89 Troponin I 0.025 NT-Pro-B Natriuret Pep 705 H 06/06/19 06/06/19 09:30 14:41 Creatine Kinase CK-MB (CK-2) Troponin I 0.027 0.029 NT-Pro-B Natriuret Pep Impressions: Chest X-Ray 06/06/19 02:37 IMPRESSION: No evidence of acute intrathoracic disease. Prominence of the cardiac silhouette which may be partially accentuated by the portable technique. Qualifiers - * PATIENT BEING DISCHARGED WITH ANY OF THE FOLLOWING DIAGNOSIS: No Acute Heart Failure - Is this a Heart Failure Patient?: Yes Documentation of LVEF assessment?: Yes LVEF < 40%?: Yes-if yes answer questions a through e a) Discharged on ACEI?: Yes b) Discharges on ARB?: No-document contraindications Reason(s) not discharged on ARB: Other - on KERMIT c) Discharged on ARNI?: No-Document Contraindications Reason(s) not discharged on ARNI: New onset heart failure, Not previously tolerating ACEI or ARB d) Discharged on evidence-based Beta violetta(carvedilol, sustained release metoprolol succinate, or bisoprolol)?: Yes e) For LVEF <35%, discharged on Aldosterone antagonist?: Yes 3. Anticoagulant therapy for permanect/persistent/paraoxysmal Afib or Aflutter: N/A Follow-up Appointment scheduled within 7 days?: No, document reason Plan Discharge Plan: Follow up with primary care provider within 1 week. Keep your alligator shear operator appointment as scheduled on 06/23/19 Weigh daily and call alligator shear operator if you gain more than 2 lbs overnight. Take medications as prescribed. Eat a low sodium diet. Return to the emergency department as needed for concerning symptoms. Time Spent: Greater than 30 Minutes
== END 2019-06-10 14:44 | disposition home or self-care (01) | DRG 305 ==
LOC: ER 00:05 → INTOOBSV 06:11 → EH 06:11 → OBSVTOIN 06:11 → 4N 13:11 → OBSVTOIN 06-07 15:51
PROVIDERS: ADMIT Emergency Medicine; ATTEND Emergency Medicine
PROC: 5A09457 Assistance with Respiratory Ventilation, 24-96 Consecutive Hours, Continuous Positive Airway Pressure (ICD-10-PCS; principal; 2019-06-06)
DX: I16.0 Hypertensive urgency (principal); Z68.43 Body mass index [BMI] 50.0-59.9, adult; I11.0 Hypertensive heart disease with heart failure; I50.9 Heart failure, unspecified; E66.01 Morbid (severe) obesity due to excess calories; F17.210 Nicotine dependence, cigarettes, uncomplicated; F14.10 Cocaine abuse, uncomplicated; F12.10 Cannabis abuse, uncomplicated; Z83.3 Family history of diabetes mellitus; Z82.49 Family history of ischemic heart disease and other diseases of the circulatory system
CPT/HCPCS: 36415; 71045; 80048; 80053; 80061; 80076; 82550; 82553; 83036; 83880; 84439; 84443; 84484; 85025; 85027; 85610; 85730; 93005; 93010; 93306; 94660; 99284; C1887; G0378; J0360; J1644; J1940; J2270; J3490

== ENCOUNTER → 2020-03-30 | Outpatient (CLI) | payer OTHER ==
[2020-03-30 11:32] LABS: ABSOLUTE BASOPHILS # (AUTO) 0.1 10^3/uL (0.0-0.2); ABSOLUTE EOSINOPHILS # (AUTO) 0.3 10^3/uL (0.0-0.6); ABSOLUTE LYMPHOCYTES (AUTO) 2.1 10^3/uL (0.5-4.7); ABSOLUTE MONOCYTES (AUTO) 0.9 10^3/uL (0.1-1.4); ABSOLUTE NEUT (AUTO) 6.1 10^3/uL (1.7-8.2); BASOPHILS % (AUTO) 0.6 % (0-2); EOSINOPHILS % (AUTO) 2.7 % (0-6); HEMATOCRIT 43.5 % (37.9-51.0); HEMOGLOBIN 15.6 g/dL (13.5-17.0); LYMPHOCYTES % (AUTO) 22.6 % (13-45); MEAN CORPUSCULAR HEMOGLOBIN 31.2 pg (27.0-33.4); MEAN CORPUSCULAR HGB CONC 35.9 g/dL (32.0-36.0); MEAN CORPUSCULAR VOLUME 87 fl (80-97); MONOCYTES % (AUTO) 9.1 % (3-13); PLATELET COUNT 216 10^3/uL (150-450); RED BLOOD COUNT 5.01 10^6/uL (4.35-5.55); RED CELL DISTRIBUTION WIDTH 12.3 % (11.5-14.0); TOTAL CELLS COUNTED % (AUTO) 100 %; WHITE BLOOD COUNT 9.4 10^3/uL (4.0-10.5)
[2020-03-30 11:47] LABS: ALBUMIN 4.7 g/dL (3.5-5.0); ALKALINE PHOSPHATASE 60 U/L (38-126); ANION GAP 8 (5-19); ASPARTATE AMINO TRANSFERASE 25 U/L (17-59); BLOOD UREA NITROGEN 17 mg/dL (7-20); CALCIUM 9.8 mg/dL (8.4-10.2); CARBON DIOXIDE 31 mmol/L (22-30); CHLORIDE 98 mmol/L (98-107); CHOLESTEROL 195.89 mg/dL (0-200); GLUCOSE 90 mg/dL (75-110); POTASSIUM 4.4 mmol/L (3.6-5.0); TOTAL PROTEIN 7.5 g/dL (6.3-8.2); TRIGLYCERIDES 78 mg/dL (<150)
[2020-03-30 11:58] LABS: DIRECT LDL 142 mg/dL (<100)
== END ==
LOC: CCC 10:39
PROVIDERS: ATTEND Family Medicine
DX: I11.0 Hypertensive heart disease with heart failure (principal); I50.9 Heart failure, unspecified
CPT/HCPCS: 36415; 80053; 80061; 83036; 84443; 85025

== ENCOUNTER 2020-05-22 03:30 | Emergency (ER) | payer OTHER ==
--- NOTE | 2020-05-22 04:42 | ER Document Report ---
ED General - General Chief Complaint: Chest Pain > 30 Stated Complaint: ABDOMINAL PAIN/NAUSEA Time Seen by Provider: 05/22/20 04:20 Primary [facility] Provider: [facility] [Primary Care Provider] - Follow up as needed Mode of Arrival: Ambulatory Information source: Patient Notes: 35-year-old male presented to ED for complaint of sore throat chest heaviness co ugh congestion. He states is started after he came back from [place]. He does have a history of CHF high blood pressure high cholesterol. He states he is on aspirin lactone, Lasix, lisinopril, amlodipine, and carvedilol as well as atorvastatin. Patient is alert oriented respirations regular nonlabored. He is a very morbidly obese -[place] male. He does have a weight of 163.6 kg with a BMI of 46. The patient was evaluated during the global Covid 19 pandemic, and that diagnosis was suspected/considered upon their initial presentation. Their evaluation, treatment and testing was consistent with current guidelines for patients who present with complaints or symptoms that may be related to Covid 19. TRAVEL OUTSIDE OF THE [place] IN LAST 30 DAYS: No - HPI Onset: Other - Thursday Onset/Duration: Gradual Quality of pain: Other - Heaviness Severity: Moderate Pain Level: 3 Associated symptoms: Chest pain - Heaviness, Nonproductive cough, Other - Cough congestion sore throat Exacerbated by: Movement, Walking, Coughing Relieved by: Denies Similar symptoms previously: Yes Recently seen / treated by doctor: No - Related Data Allergies/Adverse Reactions: No Known Allergies Allergy (Unverified 06/06/19 06:16) Past Medical History - General Information source: Patient - Social History Smoking Status: Never Smoker Frequency of alcohol use: None Drug Abuse: None Family History: CAD, COPD, DM, Hyperlipidemia, Hypertension, Malignancy - Past Medical History Cardiac Medical History: Reports: Hx Congestive Heart Failure, Hx Hyperch olesterolemia, Hx Hypertension Pulmonary Medical History: Reports: None EENT Medical History: Reports: None Neurological Medical History: Reports: None Endocrine Medical History: Reports: None Renal/ Medical History: Reports: None Malignancy Medical History: Reports None GI Medical History: Reports: None Musculoskeletal Medical History: Reports None Skin Medical History: Reports None Psychiatric Medical History: Reports: None Traumatic Medical History: Reports: None Infectious Medical History: Reports: None Surgical Hx: Negative Past Surgical History: Reports: None - Immunizations Immunizations up to date: No Review of Systems - Review of Systems Constitutional: Recent illness EENT: Nose discharge, Sinus discharge, Throat pain Cardiovascular: Chest pain - Left heaviness Respiratory: Cough Gastrointestinal: No symptoms reported Genitourinary: No symptoms reported Male Genitourinary: No symptoms reported Musculoskeletal: No symptoms reported Skin: No symptoms reported Hematologic/Lymphatic: No symptoms reported Neurological/Psychological: No symptoms reported -: Yes All other systems reviewed and negative Physical Exam - Vital signs Vitals: Temp Pulse Resp BP Pulse Ox 98.7 F 81 16 152/87 H 96 05/22/20 04:10 05/22/20 04:10 05/22/20 04:10 05/22/20 04:10 05/22/20 04:10 Interpretation: Normal - General General appearance: Appears well, Alert - HEENT Head: Normocephalic, Atraumatic Eyes: Normal Pupils: PERRL Ears: Normal External canal: Normal Tympanic membrane: Normal Sinus: Normal Nasal: Purulent discharge, Swelling Mouth/Lips: Normal Mucous membranes: Normal Pharynx: Post nasal drainage Neck: Normal - Respiratory Respiratory status: No respiratory distress Chest status: Nontender Breath sounds: Nonproductive cough Chest palpation: Normal - Cardiovascular Rhythm: Regular Heart sounds: Normal auscultation Murmur: No - Abdominal Inspection: Normal Distension: No distension Bowel sounds: Normal Tenderness: Nontender Organomegaly: No organomegaly - Back Back: Normal, Nontender - Extremities General upper extremity: Normal inspection, Nontender, Normal color, Normal ROM, Normal temperature General lower extremity: Normal inspection, Nontender, Normal color, Normal ROM, Normal temperature, Normal weight bearing. No: Jules's sign - Neurological Neuro grossly intact: Yes Cognition: Normal Orientation: AAOx4 [place] Coma Scale Eye Opening: Spontaneous [place] Coma Scale Verbal: Oriented [place] Coma Scale Motor: Obeys Commands [place] Coma Scale Total: 15 Speech: Normal Motor strength normal: LUE, RUE, LLE, RLE Sensory: Normal - Psychological Associated symptoms: Normal affect, Normal mood - Skin Skin Temperature: Warm Skin Moisture: Dry Skin Color: Normal Course - Re-evaluation Re-evalutation: 05/22/20 08:22 Labs and x-rays were discussed with patient. Report of labs and x-ray given to patient to follow-up with his primary care doctor. Patient presents with upper respiratory symptoms worrisome for possible Covid 19. Patient does not have emergency worring symptoms such as difficulty breathing, shortness of breath, chest pain, pressure, confusion or cyanosis. Patient appears suitable for discharge as they are not of an advanced age, do not have any chronic medical conditions such as diabetes, CAD, immune deficiency, chronic lung disease or c hronic kidney disease. Patient's vital signs are stable and patient is nontoxic in appearance. Good return precautions have been discussed with patient, patient verbalized understanding and is agreeable with discharge plan of care at this time. - Vital Signs Vital signs: Temp Pulse Resp BP Pulse Ox 97.5 F 81 17 162/87 H 96 05/22/20 06:46 05/22/20 04:10 05/22/20 07:01 05/22/20 07:01 05/22/20 07:01 - Laboratory Result Diagrams: 05/22/20 05:20 05/22/20 05:20 Laboratory results interpreted by me: 05/22/20 05/22/20 05:20 05:20 Sodium 136.9 L NT-Pro-B Natriuret Pep 129 H - Diagnostic Test Radiology reviewed: Image reviewed, Reports reviewed Discharge - Discharge Clinical Impression: Morbid obesity with BMI of 50.0-59.9, adult URI (upper respiratory infection) Qualifiers: URI type: unspecified viral URI Qualified Code(s): J06.9 - Acute upper respiratory infection, unspecified CHF (congestive heart failure) Qualifiers: Heart failure type: unspecified Heart failure chronicity: chronic Qualified Code(s): I50.9 - Heart failure, unspecified Condition: Stable Disposition: HOME, SELF-CARE Additional Instructions: You were seen today for chest heaviness and sore throat after you used a [id number] medication at nighttime. You stated by the time I had finished all of the work-up that your symptoms were much better except you still had a sore throat. BNP is mildly elevated so please be sure you take all of your medications you have been prescribed for your CHF. Please do not take [id number] medications without clearing them with your primary care doctor first. Please gargle with warm salt and soda water for your sore throat. Given you a copy of your lab and chest x-ray reports please relay these to your primary care doctor so they can continue your treatment accordingly. UPPER RESPIRATORY ILLNESS: You have a viral infection of the respiratory passages -- a "cold." This common infection causes nasal congestion, drainage, and often sore throat and cough. It is highly contagious. The disease usually lasts about 10 to 14 days. There is no "cure" for the viral infection -- it must run its course. If there is a complication, such as bacterial infection in the nose, sinuses, middle ear, or bronchial tubes, antibiotics may be required. The antibiotics won't affect the virus. Drink plenty of fluids. A humidifier may help. An expectorant medication or decongestant may make you more comfortable. Use acetaminophen or ibuprofen for fever or aches. See the doctor if fever persists over two days, if there is any significant worsening of your symptoms, or if you simply fail to improve as expected. SORE THROAT: Sore throats may be caused by viruses, bacteria, or fungi. Most are due to a virus, and must get better on their own. Bacterial sore throats, particularly those due to "strep," need treatment with antibiotics. If an antibiotic is prescribed, be sure to take the medication for a full 10 days. Failure to take the antibiotic can result in complications such as rheumatic fever. Sometimes, an injection of antibiotics is given instead of pills or liquid. This single "shot" is equal in effectiveness to the oral medication. To relieve symptoms, take acetaminophen for pain. Sip clear liquids frequently, or eat popsicles or ice chips. Anesthetic sprays or lozenges may help. Make sure the air in the room is not too dry. Avoid using decongestants or antihistamines. Call the doctor if there is no improvement in two days, or if you have difficulty breathing, increasing throat pain, high fever, rash, or frequent vomiting. Salt and soda solution gargle 1 quart of water 1 tablespoon of salt 1 teaspoon of baking soda Mixed 3 ingredients together and boil for 1 minute Placed in a covered quart jar Use 1/2 ounce of cold solution to gargle 3 times a day Patient was provided with discharge information including: As a person under investigation for Covid 19, the [facility] of Health and Human Services, division of public health advises you to adhere to the following guidance until your test results are reported to you. If your test result is positive, you will receive additional information from your provider and your local health department at that time. Remain at home until you are cleared by the health provider or public health authorities. Keep a log of visitors to your home, notify any visitors to your home of your isolation status. If you plan to move to a new address or leave the county, notify the local health department in your County. Call your doctor or seek care if you have an urgent medical need. Before seeking medical care, call ahead to get instructions from the provider before arriving at the medical office clinic or hospital. Notify them that you are being tested for the virus that causes Covid 19 so that arrangements can be made, as necessary, to prevent transmission to others in the healthcare setting. Next, notify the local health department in your county. If a medical emergency arises and you need to call 911, inform the first responders that you are being tested for the virus that causes Covid 19. Next, notify the local health department in your county. Forms: Elevated Blood Pressure Referrals: [facility] [Primary Care Provider] - Follow up as needed
[2020-05-22 05:52] LABS: ABSOLUTE BASOPHILS # (AUTO) 0.1 10^3/uL (0.0-0.2); ABSOLUTE EOSINOPHILS # (AUTO) 0.3 10^3/uL (0.0-0.6); ABSOLUTE LYMPHOCYTES (AUTO) 2.5 10^3/uL (0.5-4.7); ABSOLUTE MONOCYTES (AUTO) 0.7 10^3/uL (0.1-1.4); ABSOLUTE NEUT (AUTO) 5.8 10^3/uL (1.7-8.2); BASOPHILS % (AUTO) 0.6 % (0-2); EOSINOPHILS % (AUTO) 3.1 % (0-6); HEMATOCRIT 40.7 % (37.9-51.0); LYMPHOCYTES % (AUTO) 26.8 % (13-45); MEAN CORPUSCULAR HEMOGLOBIN 31.3 pg (27.0-33.4); MEAN CORPUSCULAR HGB CONC 34.3 g/dL (32.0-36.0); MEAN CORPUSCULAR VOLUME 91 fl (80-97); MONOCYTES % (AUTO) 7.8 % (3-13); PLATELET COUNT 229 10^3/uL (150-450); RED BLOOD COUNT 4.47 10^6/uL (4.35-5.55); RED CELL DISTRIBUTION WIDTH 12.9 % (11.5-14.0); SEGMENTED NEUTROPHILS % (AUTO) 61.7 % (42-78); TOTAL CELLS COUNTED % (AUTO) 100 %; WHITE BLOOD COUNT 9.4 10^3/uL (4.0-10.5)
[2020-05-22 06:12] LABS: ALBUMIN 4.1 g/dL (3.5-5.0); ALKALINE PHOSPHATASE 52 U/L (38-126); ANION GAP 8 (5-19); ASPARTATE AMINO TRANSFERASE 25 U/L (17-59); BILIRUBIN,TOTAL 0.5 mg/dL (0.2-1.3); BLOOD UREA NITROGEN 19 mg/dL (7-20); CALCIUM 9.6 mg/dL (8.4-10.2); CARBON DIOXIDE 27 mmol/L (22-30); CHLORIDE 102 mmol/L (98-107); GLUCOSE 109 mg/dL (75-110); POTASSIUM 3.7 mmol/L (3.6-5.0); TOTAL PROTEIN 6.5 g/dL (6.3-8.2)
--- NOTE | 2020-05-22 06:17 | RADIOLOGY REPORT (SQ) ---
EXAM DESCRIPTION: XR CHEST 2 VIEWS COMPLETED DATE/TME: 05/22/2020 04:34 CLINICAL HISTORY: 35 years Male, short of breath chest heavy chf COMPARISON:Jun 06 2019 FINDINGS: Adequate lung volume, pulmonary vascular congestion, normal cardiac silhouette, and intact bony thorax. IMPRESSION: Pulmonary vascular congestion.
[2020-05-22 06:24] LABS: CREATINE KINASE MB 0.91 ng/mL (<4.55); TROPONIN I 0.012 ng/mL
[2020-05-22 07:04] VITALS: BP 162/87
--- NOTE | 2020-05-22 14:41 | EKG REPORT ---
SEVERITY:- ABNORMAL ECG - SINUS RHYTHM NONSPECIFIC T ABNORMALITIES, INFERIOR LEADS : Confirmed by: Priscila June MD 22-May-2020 14:40:55
== END 2020-05-22 07:04 | disposition home or self-care (01) ==
LOC: ER 03:30
DX: J06.9 Acute upper respiratory infection, unspecified (principal); E66.01 Morbid (severe) obesity due to excess calories; Z68.43 Body mass index [BMI] 50.0-59.9, adult; I50.9 Heart failure, unspecified; R10.9 Unspecified abdominal pain; R07.9 Chest pain, unspecified; R11.0 Nausea; Z20.828 Contact with and (suspected) exposure to other viral communicable diseases
CPT/HCPCS: 93005; 99285; 36415; 87070; 82553; 87880; 83735; 85025; 87635; 80053; 84484; 83880; 71046; 93010; C9803; 87077